=== PATIENT | female | born 2000 | race African-American/Black ===

== ENCOUNTER 2022-03-07 12:30 | Emergency (ER) | payer OTHER, BC ==
[~2022-03-07] VITALS: Ht 162.6 cm; Wt 112.0 kg
[2022-03-07 12:59] VITALS: BP 116/63
[2022-03-07] MEDS ORDERED: IBUPROFEN 800 MG TAB PO ONE (14:00)
[2022-03-07] MEDS ORDERED: IBUP800T27 PO (14:56)
[2022-03-07] MEDS ORDERED: METH750T22 PO (14:56)
== END 2022-03-07 15:05 | disposition home or self-care (01) ==
LOC: ER 12:30
DX: S63.502A Unspecified sprain of left wrist, initial encounter (principal); S63.92XA Sprain of unspecified part of left wrist and hand, initial encounter; S16.1XXA Strain of muscle, fascia and tendon at neck level, initial encounter; S39.012A Strain of muscle, fascia and tendon of lower back, initial encounter; V43.52XA Car driver injured in collision with other type car in traffic accident, initial encounter; Y93.89 Activity, other specified; Y92.410 Unspecified street and highway as the place of occurrence of the external cause; Y99.8 Other external cause status
CPT/HCPCS: 72040; 72100; 73130